=== PATIENT | female | born 1955 | race Two or more races ===

== ENCOUNTER 2023-06-16 12:33 | Emergency (ER) | payer OTHER ==
[~2023-06-16] VITALS: Ht 162.6 cm; Wt 83.0 kg
[~2023-06-16 12:33] MED LIST: AVAPRO150 MG PO; CRESTOR10 MG PO; JANUMET 50-501 UDTAB PO; NAPROXEN SODIU550 M1 PO
[2023-06-16] MEDS ORDERED: NEURONTIN300 MG (13:40)
[2023-06-16] MEDS ORDERED: ORPHENADRINE CITRATE 30 MG/ML AMPUL IM STA (13:52)
[2023-06-16] MEDS ORDERED: DEXAMETHASONE SODIUM PHOSPHATE 4 MG/ML VIAL IM STA (13:52)
[2023-06-16] MEDS ORDERED: KETOROLAC TROMETHAMINE 60 MG VIAL IM STA (13:52)
[2023-06-16 14:48] LABS: HEMATOCRIT 34.9 % (36.0-45.00); HEMOGLOBIN 11.5 g/dL (12.0-15.00); MEAN CELL VOLUME 88.8 fL (80.00-100.00); MEAN CORPUSCULAR HEMOGLOBIN 29.4 pg (27.00-32.0); MEAN CORPUSCULAR HGB CONC 33.1 g/dl (32.0-36.0); PLATELET COUNT 278 K/uL (150-450); RED BLOOD COUNT 3.93 M/uL (4.00-6.00); RED CELL DISTRIBUTION WIDTH 14.4 % (11.5-14.5)
[2023-06-16] MEDS ORDERED: 8 HOUR650 MG PO (15:58)
[2023-06-16] MEDS ORDERED: KETO10TA2 PO (15:58)
[2023-06-16] MEDS ORDERED: NORFLEX100MG PO (15:58)
== END 2023-06-16 16:17 | disposition home or self-care (01) ==
LOC: ER 12:34
PROVIDERS: General Practice
DX: R07.89 Other chest pain (principal); J02.8 Acute pharyngitis due to other specified organisms; E11.9 Type 2 diabetes mellitus without complications; Z79.84 Long term (current) use of oral hypoglycemic drugs; I10 Essential (primary) hypertension
CPT/HCPCS: 36415; 71046; 93005; 96372; 99283; J1100; J1885; J2360